=== PATIENT | female | born 1940 | race Two or more races ===

== ENCOUNTER 2025-02-15 08:12 | Day surgery (SDC) | payer MEDICARE, MEDICAID ==
[~2025-02-15] VITALS: Ht 142.2 cm; Wt 59.0 kg
[~2025-02-15 08:12] MED LIST: ALEN70TA65 PO; AMLO-258 PO; ASPI-1450 PO; HYDR25TA2 PO; LIDOCAINE/PF 2% 5 ML VIAL ONE; LOSA-382 PO; METO50 PO; NITR0.4T52 SL; OMEP-148 PO; PROPOFOL 1% 20 ML VIAL IVP ONE; SODIUM CHLORIDE 0.9% 1,000 ML ONE
[2025-02-15] MEDS: SODIUM CHLORIDE 0.9% 1,000 ML IV ONE (08:45)
== END 2025-02-15 11:30 | disposition home or self-care (01) ==
LOC: SURGERY 08:12
PROVIDERS: ATTEND Internal Medicine Gastroenterology
DX: K29.70 Gastritis, unspecified, without bleeding (principal); K21.9 Gastro-esophageal reflux disease without esophagitis; I10 Essential (primary) hypertension; K44.9 Diaphragmatic hernia without obstruction or gangrene; Z98.890 Other specified postprocedural states; Z79.899 Other long term (current) drug therapy; M81.0 Age-related osteoporosis without current pathological fracture
CPT/HCPCS: 43239; 88305; J2704; J3490; J7030